=== PATIENT | male | born 1980 | race Caucasian/White ===

== ENCOUNTER → 2016-07-20 | Outpatient (CLI) | payer BC ==
[~2016-07-20] MED LIST: OXYC-197 PO; PNT40TEC; SULF1TAB35 PO; TRM50T PO
--- NOTE | 2016-07-20 11:37 | Diagnostic Imaging Report ---
INDICATION: Numbness of the face. Headache. TECHNIQUE: Routine non contrast-enhanced axial images were obtained from the skull base to the vertex. COMPARISON: None. FINDINGS: The ventricles and cortical sulci are normal in size and contour. There is no midline shift or mass-effect. No acute intra-axial hemorrhage is seen. There are no abnormal areas of increased or decreased density to suggest acute hemorrhage or edema. No extra-axial masses or collections are present. The bony calvarium is intact. The visualized paranasal sinuses show mucosal retention cyst versus polyp in the left maxillary sinus. The mastoid air cells are clear. IMPRESSION: 1. No acute intracranial abnormality. No CT evidence of mass, acute infarct or intracranial hemorrhage. Dictated by: Dictated on workstation # [id number]
== END ==
LOC: RAD 10:56
PROVIDERS: ATTEND Family Medicine
DX: R20.8 Other disturbances of skin sensation (principal); R51 Headache
CPT/HCPCS: 70450

== ENCOUNTER 2021-06-03 05:32 | Outpatient (CLI) | payer OTHER ==
[~2021-06-03] VITALS: Ht 185.5 cm; Wt 113.6 kg
[~2021-06-03 05:32] MED LIST changes: -OXYC-197 PO; +OXYC1TAB87 PO; -SULF1TAB35 PO; +SULF1TAB38 PO
[2021-06-07] MEDS ORDERED: AMLO5TAB4 PO (10:51)
[2021-06-07] MEDS ORDERED: OLME20TA21 PO (10:51)
== END 2021-06-07 10:59 | disposition home or self-care (01) ==
LOC: PREOP 05:32
PROVIDERS: ATTEND Otolaryngology Otolaryngology/Facial Plastic Surgery
DX: Z01.818 Encounter for other preprocedural examination (principal)

== ENCOUNTER 2021-06-11 06:16 | Day surgery (SDC) | payer OTHER ==
[2021-06-11] VITALS (18 sets, daily range): BP systolic 121–176; BP diastolic 77–101
[~2021-06-11] VITALS: Ht 185.5 cm; Wt 113.6 kg
[~2021-06-11 06:16] MED LIST changes: +AMLO5TAB4 PO; +OLME20TA21 PO
[2021-06-11] MEDS: LACTATED RINGERS 1,000 ML IV PRN ×2 (06:40→08:09)
[2021-06-11] MEDS ORDERED: fentaNYL INJ 100 MCG/2 ML AMP ONE ×3 (06:46→10:47)
[2021-06-11] MEDS ORDERED: ONDANSETRON 4 MG/2 ML (SDV) Z0FRAN ONE ×2 (06:46→10:43)
[2021-06-11] MEDS ORDERED: NEOSTIGMINE 3 MG/3 ML VIAL ONE ×2 (06:46→10:57)
[2021-06-11] MEDS ORDERED: GLYCOPYRROLATE 0.2 MG/ML (ROBINUL) 2 ML VIAL ONE ×2 (06:46→10:57)
[2021-06-11] MEDS ORDERED: LIDOCAINE PF 2% 5 ML (XYLOCAINE) VIAL ONE ×2 (06:46→10:43)
[2021-06-11] MEDS ORDERED: MIDAZOLAM 2 MG/2 ML (VERSED) VIAL ONE ×2 (06:46→09:49)
[2021-06-11] MEDS ORDERED: proPOfol 200 MG/20 ML (DIPRIVAN) VIAL IV ONE ×3 (06:46→10:43)
[2021-06-11] MEDS ORDERED: PROPOFOL INJECTION 50 ML IV ONE (06:47)
[2021-06-11] MEDS ORDERED: ROCURONIUM 50 MG/5 ML (ZEMURON) VIAL IV ONE ×2 (06:47→10:43)
--- NOTE | 2021-06-11 06:56 | Progress Note-Pre Operative ---
Pre-Operative Progress Note H&P Reviewed The H&P was reviewed, patient examined and no changes noted. Date Seen by Provider: June 11, 2021 Time Seen by Provider: 06:30 Date H&P Reviewed: June 11, 2021 Time H&P Reviewed: 06:30 Pre-Operative Diagnosis: Tonsillar Hypertorhy with UAO JANIS FERRER MD June 11, 2021 06:56
--- NOTE | 2021-06-11 06:59 | Progress Note-Post Operative ---
Post-Operative Progess Note Surgeon (s)/Dump Truck Driver Off Highway (s) Surgeon JANIS FERRER MD Dump Truck Driver Off Highway n/a Pre-Operative Diagnosis Tonsillar Hypertorhy with UAO Post-Operative Diagnosis same Post-Op Procedure Note Date of Procedure: June 11, 2021 Name of Procedure Performed: Tonsillectomy Description & Findings Description and Findings: n/a Anesthesia Type get Estimated Blood Loss minimal Packing none. Specimen(s) collected/removed tonsils JANIS FERRER MD June 11, 2021 06:59
[2021-06-11] MEDS ORDERED: NS IV 1000 ML 1,000 ML IV SCH (07:00)
[2021-06-11] MEDS ORDERED: HYDROcodone/APAP 7.5MG-325 MG/15 ML (LORTAB) UDC PO PRN (07:00)
[2021-06-11] MEDS ORDERED: APAP 325 MG/10.15 ML LIQ (TYLENOL) UDC PO PRN (07:00)
[2021-06-11 07:02] LABS: BASOPHILS # (AUTO) 0.1 10^3/uL (0.0-0.1); BASOPHILS % (AUTO) 1 % (0-10); EOSINOPHILS # (AUTO) 0.3 10^3/uL (0.0-0.3); EOSINOPHILS % (AUTO) 3 % (0-10); HEMATOCRIT 43 % (40-54); HEMOGLOBIN 14.6 g/dL (13.3-17.7); LYMPHOCYTES # (AUTO) 2.4 10^3/uL (1.0-4.0); LYMPHOCYTES % (AUTO) 33 % (12-44); MEAN CORPUSCULAR HEMOGLOBIN 29 pg (25-34); MEAN CORPUSCULAR HGB CONC 34 g/dL (32-36); MEAN CORPUSCULAR VOLUME 83 fL (80-99); MEAN PLATELET VOLUME 10.7 fL (9.0-12.2); MONOCYTES # (AUTO) 0.7 10^3/uL (0.0-1.0); MONOCYTES % (AUTO) 9 % (0-12); NEUTROPHILS # (AUTO) 3.9 10^3/uL (1.8-7.8); NEUTROPHILS % (AUTO) 54 % (42-75); PLATELET COUNT 235 10^3/uL (130-400); WHITE BLOOD COUNT 7.3 10^3/uL (4.3-11.0)
[2021-06-11 07:06] LABS: POTASSIUM 3.8 MMOL/L (3.6-5.0)
[2021-06-11 07:07] LABS: CALCIUM 8.8 MG/DL (8.5-10.1)
[2021-06-11 07:12] LABS: CREATININE SERUM 0.86 MG/DL (0.60-1.30)
[2021-06-11] MEDS ORDERED: HYDROmorphone 2 MG/ML VIAL (DILAUDID) ONE (07:29)
[2021-06-11] MEDS ORDERED: ONDANSETRON 4 MG/2 ML (SDV) Z0FRAN IVP PRN (08:00)
[2021-06-11] MEDS ORDERED: HYDROmorphone 2 MG/ML VIAL (DILAUDID) IV ONE (08:00)
[2021-06-11] MEDS ORDERED: HYDR15SO8 PO (08:58)
[2021-06-11] MEDS ORDERED: AZIT200S PO (08:58)
[2021-06-11] MEDS ORDERED: DEXA4TAB PO (08:58)
[2021-06-11] MEDS ORDERED: TETRACAINESUCKERS MT (09:00)
--- NOTE | 2021-06-11 09:56 | Progress Note ---
Standard Progress Note Progress Notes/Assess & Plan Date Seen by a Provider: June 11, 2021 Time Seen by a Provider: 09:20 Progress/Assessment & Plan ENT-Patel called to see patient. He got up and wento the restroom and cough hard. With the cough he hasa begun to bleed He is coughing up small amounts of bright red blood and clots exam-showed blood in the left tonsillar fossa with mild active bleeding imp: Post-op Tonsil Bleed Rec: 1. The patient began to bleed after coughing. He will need evaluation in the OR with Repair. I dont feel compfortable with him going home with any bleeding. He has a family history of MH so will take precautions. We will proceed t oteh OR once we have a safe room available for EUA and repair of post-op tonsil bleed. Final Diagnosis Post-op Tonsil Bleed JANIS FERRER MD June 11, 2021 09:56
--- NOTE | 2021-06-11 11:34 | Anesthesia-General Post-Op ---
General Patient Condition Mental Status/LOC: Same as Preop Cardiovascular: Satisfactory Nausea/Vomiting: Absent Respiratory: Satisfactory Pain: Controlled Complications: Absent Post Op Complications Complications None Follow Up Care/Instructions Patient Instructions None needed. Anesthesia/Patient Condition Patient Condition Patient is doing well, no complaints, stable vital signs, no apparent adverse anesthesia problems. No complications reported per nursing. FRANCE HERNANDEZ CRNA June 11, 2021 11:34
[2021-06-11] MEDS ORDERED: LABETALOL HCL 20 MG/4 ML VIAL ONE (13:47)
--- NOTE | 2021-06-11 14:59 | Anesthesia-General Post-Op ---
General Patient Condition Mental Status/LOC: Same as Preop Cardiovascular: Satisfactory Nausea/Vomiting: Absent Respiratory: Satisfactory Pain: Controlled Complications: Absent Post Op Complications Complications None Follow Up Care/Instructions Patient Instructions None needed. Anesthesia/Patient Condition Patient Condition Called to evaluate the patient for tachycardia. Seen ~1345 and HR was 115-125 with his baseline hypertension, SBP 150's mmHg. Mother was concerned that he hadn't had his home BP meds since Monday. I gave patient labetalol 5 mg IV and he was to restart his home BP meds when he got home this afternoon. Patient understood and agreed to plan. LEEANNA BROWER DO June 11, 2021 14:59
== END 2021-06-11 14:40 | disposition home or self-care (01) ==
LOC: SDC 06:16
PROVIDERS: ATTEND Otolaryngology Otolaryngology/Facial Plastic Surgery
DX: J35.01 Chronic tonsillitis (principal); E66.01 Morbid (severe) obesity due to excess calories; Z68.33 Body mass index [BMI] 33.0-33.9, adult
CPT/HCPCS: 36415; 80048; 82947; 85025; 87081; 88304

== ENCOUNTER 2021-06-16 09:02 | Day surgery (SDC) | payer OTHER ==
[~2021-06-16] VITALS: Ht 185.5 cm; Wt 113.6 kg
[2021-06-16] VITALS (11 sets, daily range): BP systolic 119–146; BP diastolic 65–86
[~2021-06-16 09:02] MED LIST changes: +AZIT200S PO; +DEXA4TAB PO; +HYDR15SO8 PO; +TETRACAINESUCKERS MT
[2021-06-16] MEDS: LACTATED RINGERS 1,000 ML IV PRN ×2 (09:15→10:21)
--- NOTE | 2021-06-16 09:16 | Progress Note-Pre Operative ---
Pre-Operative Progress Note H&P Reviewed The H&P was reviewed, patient examined and no changes noted. Date Seen by Provider: June 16, 2021 Time Seen by Provider: 09:15 Date H&P Reviewed: June 16, 2021 Time H&P Reviewed: 09:15 Pre-Operative Diagnosis: Post-op tonsil bleed-Right Side JANIS FERRER MD June 16, 2021 09:16
--- NOTE | 2021-06-16 09:21 | Progress Note ---
Standard Progress Note Progress Notes/Assess & Plan Date Seen by a Provider: June 16, 2021 Time Seen by a Provider: 09:15 Progress/Assessment & Plan ENT-[facility] Physical HPI: Patient presented to the office with onset of bleeding form his mouth about 30 minutes prior. He has a history of T/A last week and had a tonsil bleed the day of surgeyr on the left side. Had been doing well up until this am. He got dizzy and lightheaded he is better now Initial HGB was 14.6 before surgeyr last week PMHX-Possible family histoyr of malignant hyperthermia Exam: oral Cvity-large clot right tonsillar fossa-no active bleeding seen IMP: Post-op Tonsil Bleed-Right Side Rec: 1. zaina lgo back to the OR to remove the clot and repair the bleeding site. Risks beneftis discussed. Will take MH precautions 2. cbc and extra tube in case of need for typ0e and cross 3. To the OR when room available and safe for MH precautions Final Diagnosis Post-op Tonsil Bleed-Right Side JANIS FERRER MD June 16, 2021 09:21
[2021-06-16] MEDS ORDERED: fentaNYL INJ 100 MCG/2 ML AMP ONE ×2 (09:24→10:10)
[2021-06-16] MEDS ORDERED: proPOfol 200 MG/20 ML (DIPRIVAN) VIAL IV ONE (09:25)
[2021-06-16] MEDS ORDERED: MIDAZOLAM 2 MG/2 ML (VERSED) VIAL ONE (09:25)
[2021-06-16] MEDS ORDERED: PROPOFOL INJECTION 50 ML IV ONE (09:25)
[2021-06-16] MEDS ORDERED: ONDANSETRON 4 MG/2 ML (SDV) Z0FRAN ONE (09:25)
[2021-06-16] MEDS ORDERED: ROCURONIUM 50 MG/5 ML (ZEMURON) VIAL IV ONE (09:25)
[2021-06-16] MEDS ORDERED: SUGAMMADEX 500 MG/5 ML VIAL (BRIDION) IV ONE ×2 (09:32→09:42)
[2021-06-16 09:40] LABS: HEMATOCRIT 37 % (40-54); HEMOGLOBIN 12.9 g/dL (13.3-17.7); MEAN CORPUSCULAR HEMOGLOBIN 29 pg (25-34); MEAN CORPUSCULAR HGB CONC 35 g/dL (32-36); MEAN CORPUSCULAR VOLUME 83 fL (80-99); MEAN PLATELET VOLUME 10.6 fL (9.0-12.2); PLATELET COUNT 458 10^3/uL (130-400); WHITE BLOOD COUNT 20.7 10^3/uL (4.3-11.0)
[2021-06-16] MEDS ORDERED: NEOSTIGMINE 3 MG/3 ML VIAL ONE (10:03)
[2021-06-16] MEDS ORDERED: GLYCOPYRROLATE 0.2 MG/ML (ROBINUL) 2 ML VIAL ONE (10:03)
[2021-06-16] MEDS ORDERED: APAP 325 MG/10.15 ML LIQ (TYLENOL) UDC PO PRN (10:15)
[2021-06-16] MEDS ORDERED: HYDROcodone/APAP 7.5MG-325 MG/15 ML (LORTAB) UDC PO PRN (10:15)
--- NOTE | 2021-06-16 10:15 | Progress Note-Post Operative ---
Post-Operative Progess Note Surgeon (s)/Chief Librarian Circulation Department (s) Surgeon JANIS FERRER MD Chief Librarian Circulation Department n/a Pre-Operative Diagnosis Post-op tonsil bleed-Right Side Post-Operative Diagnosis same Post-Op Procedure Note Date of Procedure: June 16, 2021 Name of Procedure Performed: Repair of Right Post-op Tonsil Bleed Description & Findings Description and Findings: n/a Anesthesia Type get Estimated Blood Loss minimal Packing none. Specimen(s) collected/removed none JANIS FERRER MD June 16, 2021 10:15
[2021-06-16] MEDS ORDERED: LIDOCAINE PF 2% 5 ML (XYLOCAINE) VIAL ONE (10:23)
[2021-06-16] MEDS ORDERED: HYDROcodone/APAP 7.5MG-325 MG/15 ML (LORTAB) UDC ONE (12:00)
== END 2021-06-16 15:15 | disposition home or self-care (01) ==
LOC: SDC 09:02
PROVIDERS: ATTEND Otolaryngology Otolaryngology/Facial Plastic Surgery
DX: K91.840 Postprocedural hemorrhage of a digestive system organ or structure following a digestive system procedure (principal)
CPT/HCPCS: 36415; 82947; 85027; 87081

== ENCOUNTER 2021-07-07 14:08 | Outpatient (CLI) | payer OTHER | END 2021-07-07 14:30 | LOC: SLEEP 14:08 | PROVIDERS: ATTEND Otolaryngology Otolaryngology/Facial Plastic Surgery | DX: G47.33 Obstructive sleep apnea (adult) (pediatric) (principal); I10 Essential (primary) hypertension | CPT/HCPCS: G0399 ==